=== PATIENT | female | born 1995 | race African-American/Black ===

== ENCOUNTER 2017-05-06 16:04 | Emergency (ER) | payer OTHER, MEDICAID ==
[~2017-05-06] VITALS: Ht 170.2 cm; Wt 61.0 kg
[2017-05-06] MEDS ORDERED: IBUPROFEN 600MG TABLET PO ONE (17:00)
[2017-05-06 17:06] VITALS: BP 113/75
== END 2017-05-06 17:40 | disposition home or self-care (01) ==
LOC: ER 17:40
DX: S80.01XA Contusion of right knee, initial encounter (principal); J06.9 Acute upper respiratory infection, unspecified; F17.200 Nicotine dependence, unspecified, uncomplicated; W18.30XA Fall on same level, unspecified, initial encounter; Y93.89 Activity, other specified; Y92.89 Other specified places as the place of occurrence of the external cause; Y99.8 Other external cause status
CPT/HCPCS: 99282

== ENCOUNTER 2018-06-12 09:54 | Emergency (ER) | payer OTHER, MEDICAID ==
[~2018-06-12] VITALS: Ht 170.2 cm; Wt 71.0 kg
[2018-06-12 11:08] VITALS: BP 117/63
== END 2018-06-12 13:01 | disposition left against medical advice (07) ==
LOC: ER 11:07
DX: R05 Cough (principal); R09.81 Nasal congestion; R11.2 Nausea with vomiting, unspecified; Z53.21 Procedure and treatment not carried out due to patient leaving prior to being seen by health care provider

== ENCOUNTER 2019-08-12 08:31 | Emergency (ER) | payer MEDICAID, OTHER ==
[~2019-08-12] VITALS: Ht 170.2 cm; Wt 81.4 kg
[2019-08-12] MEDS ORDERED: ACETAMINOPHEN 325MG TABLET PO ONE (11:00)
[2019-08-12 11:26] VITALS: BP 109/63
== END 2019-08-12 11:27 | disposition home or self-care (01) ==
LOC: ER 09:13
DX: S39.82XA Other specified injuries of lower back, initial encounter (principal); V49.49XA Driver injured in collision with other motor vehicles in traffic accident, initial encounter; Y93.89 Activity, other specified; Y92.488 Other paved roadways as the place of occurrence of the external cause
CPT/HCPCS: 81025; 99282

== ENCOUNTER 2019-12-17 20:13 | Emergency (ER) | payer MEDICAID, OTHER ==
[~2019-12-17] VITALS: Ht 170.2 cm; Wt 79.6 kg
[2019-12-17 20:50] VITALS: BP 115/62
[2019-12-17] MEDS ORDERED: HYDROCODONE/ACETAMINOPHEN 5/325MG TABLET PO ONE (22:45)
== END 2019-12-17 23:54 | disposition home or self-care (01) ==
LOC: ER 20:13
DX: S30.0XXA Contusion of lower back and pelvis, initial encounter (principal); S10.93XA Contusion of unspecified part of neck, initial encounter; S90.02XA Contusion of left ankle, initial encounter; J45.909 Unspecified asthma, uncomplicated; F12.10 Cannabis abuse, uncomplicated; W01.0XXA Fall on same level from slipping, tripping and stumbling without subsequent striking against object, initial encounter; Y93.89 Activity, other specified; Y92.89 Other specified places as the place of occurrence of the external cause; Y99.8 Other external cause status
CPT/HCPCS: 73610; 81025; 99283